=== PATIENT | male | born 1970 | race African-American/Black ===

== ENCOUNTER 2016-09-16 23:31 | Inpatient (IN) | payer MEDICARE, OTHER ==
--- NOTE | ~2016-09-16 | HP ---
Unit #: [id number] #: [id number] Patient: NELLY PIÑA [id number] [address] [place], [place] [address] [id number] I MR#: [id number] NAME: NELLY PIÑA. ROOM: 36436 Age: 46 Sex: M Admission Date: 09/17/2016 : 1970 Attending Physician: Leta Castellon M.D. Primary Care Physician: Lida Youngblood Family HISTORY AND PHYSICAL CHIEF COMPLAINT Symptomatic anemia with heme positive stool. HISTORY This 46-year-old male with schizophrenia, extensive previous abdominal surgery after drinking Drano, is admitted for symptomatic anemia. The patient states that he began to experience lightheadedness about two months ago. Did note melena around that same time. I am told he got kicked out of the [employer] yesterday, details are unknown. In any event, he presented to this emergency department last evening with stable vital signs, a hemoglobin of 6.5, hematocrit of 22.5 with microcytic indices. He has heme positive stool on exam. He was given Motrin along with a liter of saline pending further workup. Does complain of left chest discomfort but no abdominal discomfort currently. PAST MEDICAL HISTORY 1. Schizophrenia versus schizoaffective disorder. 2. History of polysubstance abuse in the past with alcohol and THC abuse but patient denies recent abuse. 3. Questionable peptic ulcer disease in the past. 4. Patient drank Drano ten years ago, required extensive surgery. 5. Low back surgery. ALLERGIES No known drug allergies. HOME MEDICATIONS None. FAMILY HISTORY Possibly positive for colon cancer. SOCIAL HISTORY The patient is homeless. Smokes about a half pack per day of tobacco. Does not drink alcohol or use illicit drugs currently. REVIEW OF SYSTEMS Difficult to obtain as patient is somewhat tangential. PHYSICAL EXAMINATION GENERAL APPEARANCE: 46-year-old thin male, currently in no acute distress. VITAL SIGNS: Temperature 98.1, pulse 98, respirations 16, blood pressure Unit #: [id number] #: [id number] Patient: NELLY PIÑA 112/72. O2 saturation 97% on room air. HEENT: Eyes PERRLA. Extraocular muscles are intact. Pharynx benign with poor dentition. NECK: Supple without adenopathy or thyromegaly. Scar over the left neck noted. CHEST: A few crackles at the bases. CARDIAC: Normal S1 and S2 without S3, S4 or murmur. ABDOMEN: Bowel sounds are present. Well-healed scars are noted. Nontender. No definite hepatosplenomegaly or masses. RECTAL: Examination per the ER - heme positive stool. EXTREMITIES: Without edema. Pedal pulses are markedly diminished. NEUROLOGIC EXAM: The patient is awake, alert. Might be a bit confused but it is difficult for me to tell as he is a bit tangential. His cranial nerves are intact. He has equal strength throughout. DIAGNOSTIC STUDIES LABORATORY: Admission labs - hematocrit is 22.5, hemoglobin is 6.5, white blood count is 12. MCV is 77. Negative cardiac markers. SMA-7 - glucose is 167. CARDIOVASCULAR: EKG - normal sinus rhythm, rate 100, normal appearing. ASSESSMENT 1. Symptomatic microcytic anemia. 2. Gastrointestinal bleed. 3. Status post extensive surgery after drinking Drano ten years ago. I wonder if patient underwent partial esophagectomy and gastric pull-through. 4. Schizophrenia. 5. Prior history of substance abuse. 6. Homeless. PLANS 1. Transfuse. 2. Proton pump inhibitor. 3. Anemia workup. 4. Serial H and H. 5. Consult GI. 6. Check LFTs, urinalysis, and urine tox screen. 7. Social work to see in the morning. 8. SCDs for DVT prophylaxis. Dictated by Leta Castellon M.D. AML/df TD: 09/17/2016 05:00 JOB #: [id number] Unit #: [id number] #: [id number] Patient: NELLY PIÑA HISTORY AND PHYSICAL X Leta Castellon MD HISTORY AND PHYSICAL
--- NOTE | ~2016-09-16 | CR71 ---
[facility] A Service of [facility] & [facility] RADIOLOGY TEXT RESULTS PATIENT: NELLY PIÑA LOCATION: [facility] 330- : 70 UNIT #: [id number] AGE: [address]: Papito Cole MD SEX: M ORDER DR: [id number] [place] [address] [place], [place] [address] [id number] I MR#: [id number] Acc #: [id number] NAME: NELLY PIÑA. : 1970 SEX: M STUDY DATE/TIME: 09/21/2016 022 UNIT: [address] ROOM: [facility] STUDY DESCRIPTION: CR Chest Single View Attending Physician: Papito Cole M.D. Ordering Physician: Leta Castellon M.D. Primary Care Physician: [facility] MEDICAL IMAGING REPORT This report is preliminary unless electronic signature is present EXAM Chest x-ray 09/21/2016 of 0221 hours INDICATIONS Wheezing and chest pain tonight. History of smoking and substance abuse. AP portable chest is compared with 07/30/2016 as well as chest CT from 05/21/2016. FINDINGS The heart is enlarged. 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 Please correlate with surgical history as none has been provided. No definite acute infiltrates are identified. There is no pneumothorax. Dictated by... Jose Armando Wong Jr., M.D. THIS IS AN ELECTRONICALLY VERIFIED REPORT Jose Armando Wong Jr., M.D. at 09/22/2016 6:40 AM SUSAN/yonathan TD: 09/21/2016 12:46 JOB #: [id number] MEDICAL IMAGING REPORT COPY
--- NOTE | ~2016-09-16 | DS ---
Unit #: [id number] #: [id number] Patient: NELLY PIÑA [id number] [place] [id number] [facility]. [place], [place] [address] [id number] Karen MR#: [id number] NAME: NELLY PIÑA. ROOM: 330 Age: 46 Sex: M Admission Date: 09/17/2016 : 1970 Discharge Date: Attending Physician: Papito Cole M.D. Primary Care Physician: [facility] Patients Family DISCHARGE SUMMARY ADDENDUM Since the dictated discharge summary, the patient has been exhibiting some psychiatric behaviors stating that he was the Son of God and will be able to bless and heal everybody. Therefore, Dr. Forbes was requested to come back and see the patient and had [facility]. Since then, patient also had, per the nurse, vomited twice. I believe he just had spit up. When I assessed him, he truly had no chest pain. His repeat hemoglobin and hematocrit are stable at this time at 8.6 and 26.7. he also told the assessing nurse at [facility] that he had been exposed to TB when they had originally assessed him. When questioned, he tells me that it was many, many years ago at [facility]. They did not treat him. At this time, he denied any symptoms of night sweats. He is afebrile at this time. I have reviewed his chest x-ray. I see no cavitary lesions suggestive of TB. The radiologist reading does not mention anything about cavitary lesions such as TB as well. I have sent labs off to assess for TB and this is pending as it needs to be sent out. Will follow up on this but highly doubt that this patient has TB. He does smoke and I believe he was smoking in the room. When assessed, I can smell a strong cigarette odor in there. I will be discharging patient on prednisone orally as his oxygen saturation on room air recorded is at 98%. He is already on antibiotics for the H. pylori with amoxicillin. I don't think he needs to be on any other antibiotics. An addendum to his medicine list would be: 1. Prednisone 40 mg orally for the next three days and 30 mg orally for the next three days, 20 mg orally for the next three days, 10 mg orally for the next three days. 2. Will also be discharging him with Combivent, to have four puffs inhaled four times daily. 3. Pulmicort two puffs inhaled twice daily. Dictated by.Sharon. Dwight James PA-C for Marie Landaverde/pham TD: 09/24/2016 11:42 JOB #: [id number] Unit #: [id number] #: [id number] Patient: NELLY PIÑA DISCHARGE SUMMARY X X DISCHARGE SUMMARY
--- NOTE | ~2016-09-16 | OR ---
Unit #: [id number] #: [id number] Patient: NELLY PIÑA [id number] [address] [place], [place] [address] [id number] Karen MR#: [id number] NAME: NELLY PIÑA ROOM: [facility] Date of Procedure: 09/17/2016 Admission Date: 09/17/2016 Surgeon: Rehan Benton M.D. : 1970 Attending Physician: Lauren Davenport M.D. Primary Care Physician: [facility] OPERATIVE REPORT PROCEDURE PERFORMED Esophagogastroduodenoscopy to descending duodenum. INDICATIONS FOR PROCEDURE The patient presented with hematemesis, anemia of acute on chronic blood loss, Hemoccult-positive stool, undergoing evaluation with upper endoscopy. MEDICATIONS Monitored anesthesia. POSTOPERATIVE FINDINGS 1. Severely deformed upper esophagus with stricture. I could not pass the regular EGD scope down this area and had to use a nasojejunal scope. 2. There was an anastomosis at about 20 cm, appears to be previous gastric pull-through surgery. 3. Gastric mucosa shows, there was significant deformities in the stomach and difficult to assess the anatomy at this time. However, there was a large cratered ulcer at the anastomosis, most likely the cause of chronic bleeding. PLAN 1. Aggressive PPI therapy. 2. Check for H pylori. 3. Iron infusion. DESCRIPTION OF PROCEDURE The patient was explained of the procedure, risks, and benefits along with risks and benefits of anesthesia. He was brought to the endoscopy room. Monitored anesthesia was given. We tried the scope with a regular scope, which could not be passed down the oropharyngeal area. At this point, I used a nasojejunal scope, which was passed down and exam was finished. However, we were not having any biopsy forceps with the scope. Gently, after completing the exam, I pulled the scope out. He tolerated it well. No major complications were seen. Dictated by... Marie Paula/asha Unit #: [id number] #: [id number] Patient: NELLY PIÑA TD: 09/18/2016 06:03 JOB #: [id number] OPERATIVE REPORT X Rehan Benton MD PROCEDURE OPERATIVE NOTE
--- NOTE | ~2016-09-16 | CO ---
Unit #: [id number] #: [id number] Patient: REG PIÑA [id number] [facility] [address] [facility]. [place], [place] [address] [id number] I MR#: [id number] NAME: REG PIÑA. ROOM: 330 Age: 46 Sex: M Admission Date: 09/17/2016 : 1970 Attending Physician: Lauren Davenport M.D. Primary Care Physician: Lida Youngblood Family Consultation Date: 09/17/2016 CONSULTATION REPORT REASON FOR CONSULTATION Psychosis, paranoia, history of schizophrenia, noncompliant with medication. HISTORY OF PRESENT ILLNESS Mr. Reg Piña is a 46-year-old male, seen on 09/17/2016 in room 330 at [facility]. The patient has a sitter. The [facility]. The patient reports that they have closed the case. The patient was last admitted to [facility] in 2012, carried diagnosis of schizophrenia, history of alcohol abuse, cannabis abuse. The patient was on Zyprexa. The patient was not very cooperative with the interview and refused to answer question. When last seen, the patient was on Zyprexa 20 mg for psychosis and Zoloft 100 mg daily for depression. PAST PSYCHIATRIC HISTORY Remarkable for history of schizophrenia, chronic, paranoid type; history of substance abuse. The patient denied any use recently. Urine drug screen was positive for amphetamines and barbiturates. MEDICAL HISTORY History of anemia, questionable peptic ulcer disease. The patient drank DRANO 10 years ago. Required extensive surgery, low back pain. Schizoaffective disorder. MEDICATION HISTORY The patient is on Protonix, haloperidol p.r.n. Please refer to MAR for detail. FAMILY HISTORY AND SOCIAL HISTORY The patient reports poor support system from family. Denied any history of abuse. History of substance abuse as mentioned above. REVIEW OF SYSTEMS Complete review of systems is remarkable for paranoia, disorganized behavior requiring one-to-one monitoring, anxiety. MENTAL STATUS EXAMINATION General appearance; the patient's hygiene and grooming were poor. Attention span and concentration, poor. Speech is slow. Orientation in place. Mood and affect, labile and irritable. Thought process, circumstantial. Thought content, guarded, paranoid, but denied any thoughts of harming self or others. Recent and remote memory, poor. Unit #: [id number] #: [id number] Patient: REG PIÑA Language, able to name object. Fund of knowledge, poor. Insight and judgment, impaired. DIAGNOSES Psychiatric: Schizophrenia, chronic, paranoid type, F20.0; rule out schizoaffective disorder, F25.9; history of alcohol abuse; marijuana abuse. Secondary diagnosis: Deferred. Medical diagnosis: Please refer to H and P. Stressors: Psychosocial stressor. ASSESSMENT/PLAN 1. Supportive psychotherapy and psychoeducation provided to the patient, but the patient was not receptive. 2. Advised to start the patient on Zyprexa 10 mg b.i.d. Also, advised to monitor the patient closely. Agree with one-to-one monitoring for safety of the patient. If needed, please feel free to call. We will continue to monitor. If needed, consider further adjustment of medication. Dictated by... Marie Vasquez/asha TD: 09/18/2016 18:05 JOB #: [id number] CONSULTATION REPORT X Gary Forbes MD X CONSULTATION REPORT
--- NOTE | ~2016-09-16 | CO ---
Unit #: [id number] #: [id number] Patient: REG PIÑA [id number] [facility] [address] [facility]. [place], [place] [address] [id number] I MR#: [id number] NAME: REG PIÑA ROOM: 330 Age: 46 Sex: M Admission Date: 09/17/2016 : 1970 Attending Physician: Papito Cole M.D. Primary Care Physician: Lida Youngblood Family Consultation Date: 09/24/2016 CONSULTATION REPORT REASON FOR CONSULTATION Followup. DISCUSSION Mr. Reg Piña is a 46-year-old male. Patient continues to have delusion, paranoia. Patient was seen in room 203, bed 1 on 09/24/16 at [facility]. Patient reported to staff being (1) of God. Patient also reported that he can cure illness, having some grandiose thinking, mood lability, paranoia. Reported hearing voices. Patient is still having the above-mentioned symptoms but making progress. REVIEW OF SYSTEMS A complete review of systems is unremarkable except as mentioned above. MENTAL STATUS EXAMINATION General appearance - Patient is dressed casually, sitting comfortably in bed. Attention span, concentration - Fair. Speech - Slow in rate but coherent. Oriented to time, place and person. Mood and affect - Labile. Thought process - Circumstantial. Thought content - The patient denied any thoughts of harming self or others but guarded, paranoid, delusional. Language - Able to name objects, repeat phrases. Fund of knowledge - Fair to slightly impaired. Insight and judgment - Fair to slightly impaired. DIAGNOSIS PSYCHIATRIC: Schizophrenia, chronic paranoia, F20.0 ASSESSMENT AND PLAN 1. Supportive psychotherapy and psychoeducation provided to the patient. 2. Educated about benefits and side effects of medication and course and prognosis of illness. 3. Advised, based on the current symptomatology and interview, that the patient will be benefited by going into inpatient psych. [facility] is medically cleared for psychiatric stabilization. The patient is still having delusions, psychosis, hypomanic symptoms. The patient will be benefited with injectable haloperidol or long-acting medication for psychosis. Please feel free to call with any questions, telephone number . Unit #: [id number] #: [id number] Patient: REG PIÑA Dictated by... Marie Vasquez/valentina TD: 09/25/2016 11:00 JOB #: [id number] CONSULTATION REPORT X Gary Forbes MD X CONSULTATION REPORT
--- NOTE | ~2016-09-16 | CO ---
Unit #: [id number] #: [id number] Patient: REG BEAULIEU [id number] [address] [place], [place] [address] [id number] I MR#: [id number] NAME: REG BEAULIEU. ROOM: 330 Age: 46 Sex: M Admission Date: 09/17/2016 : 1970 Attending Physician: Papito Cole M.D. Consultation Date: 09/20/2016 CONSULTATION REPORT DISCUSSION Reg Beaulieu is a 46-year-old male, seen on 09/20/2016. The patient lying comfortably in bed. Mood is sad and dysphoric, flat affect, withdrawn, and guarded. The patient denied any compliant with medication. The patient did not show any agitation. Tolerating medication fairly well. The patient still guarded and paranoid, but medication is helping. The patient's labs showed hemoglobin 9.1, RBC 3.48. The patient's sodium is 141, potassium 4.5, chloride 114. The patient's vital signs; 97.6, 78, 14, 111/66. REVIEW OF SYSTEMS Complete review of systems unremarkable. MENTAL STATUS EXAMINATION General appearance, the patient dressed casually. Attention span and concentration, fair. Mood and affect were sad and dysphoric, flat guarded, paranoid. Thought process, circumstantial. Thought content, guarded, paranoid, but denied any thoughts of harming self or others. Recent and remote memory, poor. Language, able to name object, fair. Fund of knowledge, fair to slightly impaired. Insight and judgment, fair to slightly impaired. DIAGNOSES Psychiatric: Schizophrenia, chronic, paranoid type, F20.0; history of schizoaffective disorder. ASSESSMENT AND PLAN Advised to continue with current medication and therapeutic protocol. We will monitor response to medication and make further adjustment of medication if needed. Please feel free to call if any questions, telephone #[phone]. Dictated by... Gary Forbes M.D. SHIMON/asha TD: 09/21/2016 13:14 JOB #: [id number] Unit #: [id number] #: [id number] Patient: REG BEAULIEU CONSULTATION REPORT X Gary Forbes MD CONSULTATION REPORT
--- NOTE | ~2016-09-16 | EKG ---
PATIENT: NELLY PIÑA UNIT #: [id number] Ventricular Rate: 96 BPM Atrial Rate: 96 BPM P-R Interval: 128 ms QRS Duration: 62 ms Q-T Interval: 348 ms QTC Calculation(Bezet): 439 ms P [place]: 48 degrees Calculated R [place]: 12 degrees Calculated T [place]: 59 degrees Diagnosis Line: Normal sinus rhythm with sinus arrhythmia Diagnosis Line: Normal ECG Diagnosis Line: When compared with ECG of 16-SEP-2016 23:42, Diagnosis Line: No significant change was found Diagnosis Line: Confirmed by SAMMY LUNA MD ([id number]) on Diagnosis Line: 09/22/2016 4:06:14 PM INTERPRETING MD: JEREMY ARREOLA
--- NOTE | ~2016-09-16 | DS ---
Unit #: [id number] #: [id number] Patient: NELLY PIÑA [id number] [address] [place], [place] [address] [id number] I MR#: [id number] NAME: NELLY PIÑA. ROOM: 330 Age: 46 Sex: M Admission Date: 09/17/2016 : 1970 Discharge Date: 09/21/2016 Attending Physician: Papito Cole M.D. Primary Care Physician: Lida Youngblood Family DISCHARGE SUMMARY The patient is homeless so he has no true primary care physician. DISCHARGE DIAGNOSES 1. Severe upper gastrointestinal bleed with positive Helicobacter pylori on serology from esophagogastroduodenoscopy. 2. Acute blood loss anemia secondary to #1, status post three units of packed red blood cells transfusion and iron transfusion. 3. Status post esophagectomy following drinking Drano many years ago. 4. Schizophrenia: Dr. Forbes has been consulted. Patient will be discharged with Zyprexa. 5. Polysubstance abuse: Patient was again positive for amphetamine. 6. Homelessness. CONSULTANTS 1. Dr. Forbes - Psychiatry. 2. Dr. Benton - Gastroenterology. PROCEDURES The patient had an EGD performed by Dr. Benton on September 17, 2016, where he was found to have severe deformed upper esophagus with stricture and was not able to pass a bronchoscope down but had to use a nasojejunal scope instead. There was also anastomoses at about 2 cm which appears to be from previous gastric pull-through surgery. There was also gastric mucosa with significant deformities in the stomach and difficult to assess anatomy but there was a large cratered ulcer at the anastomoses, most likely the cause of the chronic bleed. Dr. Benton had recommended aggressive PPI therapy as well as to check for H. pylori which was positive and iron transfusion. IMAGING No imaging was needed. LAB WORK At this time, the patient's last BMP was glucose of 85, BUN 11, creatinine 0.6, sodium 141, potassium 4.5, chloride 114, CO2 23, calcium 8.4, magnesium 1.9, total protein 5.0, albumin 2.7, total bilirubin 0.7, AST 19, ALT 14, alkaline phos. 94. TSH when checked was 2.23. CBC - WBC 7.9, RBC 3.48, hemoglobin 9.1, hematocrit 28.7, MCV is 82.7, MCH is 26.2, MCHC is 31.7, RDW of 20.1, platelets if 431, MPV is 7.3. HOSPITAL COURSE The patient is a 46-year-old male with a history of schizophrenia, extensive previous abdominal surgery after drinking Drano, was admitted to Unit #: [id number] #: [id number] Patient: NELLY PIÑA due to having symptoms of lightheadedness about two months prior to admission. He did note melena around that same time. He was kicked out of the [employer] the day prior to admission for unknown reason. In the event, he presented to the emergency department where he had stable vital signs but hemoglobin was 6.5, hematocrit was 22.5. He was heme positive of stool exam. He was given Motrin along with a liter of saline for further workup. Dr. Benton of gastroenterology was consulted to see the patient where he had performed an upper EGD with the result as stated above. The source of bleeding was found to be a large ulcerated ulcer. This was sent to lab and H. pylori was positive. Initiating triple therapy for H. pylori with amoxicillin, clarithromycin and Protonix, as patient has no known allergies, and will continue with aggressive Protonix usage thereon after. The patient did receive a total of three units of packed red blood cells as well as iron transfusion for the anemia. At this time, the patient is stable. precision printing worker is assisting with placement. DISCHARGE CONDITION Stable. DISCHARGE INSTRUCTIONS Please find a primary care physician. Will set him up to follow up with [facility] if he is willing to arrive for that appointment. Follow up with Dr. Martin by Dr. Martin's recommendation. DISCHARGE MEDICATIONS 1. Nicotine 21 mg transdermal patch [id number]. 2. Zyprexa 10 mg orally twice daily per Dr. Forbes's recommendation for the schizophrenia. 3. 1000 mg of vitamin B12 orally daily. 4. Multivitamin, one tablet orally daily. 5. Iron supplement 325 mg orally daily. 6. Treatment for H. pylori - amoxicillin 1 g orally twice daily for 14 days, clarithromycin 500 mg orally twice daily for 14 days, Protonix 40 mg aggressively twice daily for 30 days and then he can reduce to 40 mg orally daily. The patient's prognosis is poor if he continues to not care about his overall health. Patient does have a history of having substance abuse and on urine drug screen on arrival he was positive for amphetamine and positive for barbiturates but he does not have any home prescribed medicine. Dictated by... Dwight James PA-C for Marie Landaverde/pham TD: 09/23/2016 06:09 JOB #: [id number] Unit #: [id number] #: [id number] Patient: NELLY PIÑA DISCHARGE SUMMARY X X DISCHARGE SUMMARY
--- NOTE | ~2016-09-16 | DS ---
Unit #: [id number] #: [id number] Patient: NELLY PIÑA [id number] [address] [place], [place] [address] [id number] I MR#: [id number] NAME: NELLY PIÑA. ROOM: 330 Age: 46 Sex: M Admission Date: 09/17/2016 : 1970 Discharge Date: Attending Physician: Papito Cole M.D. Primary Care Physician: Lida Youngblood Family DISCHARGE SUMMARY ADDENDUM Since yesterday, the patient has had symptoms of chest pain. A repeat H and H reveals that hemoglobin was 7.8; fell from 9.3. Due to symptomatic anemia, discharge was held. The patient was given transfusion of 2 units of packed red blood cells. Dr. Benton has seen the patient again. He felt that the patient had no overt signs of bleeding. [place] that the patient is stable to be discharged today with hemoglobin of 8.8. Again, at this time the patient has no overt signs of bleeding and will be discharged to senior living today. The patient's prognosis is poor given his chronic problems remotely with esophagectomy following the Drano consumption and now with acute GI bleed, H. pylori. If the patient is not compliant in taking his triple therapy, then he will possibly continue to bleed from the ulcerated gastritis. As well, (1) given his lifestyle with substance abuse; the patient's urine drug screen was positive on admission for amphetamine. All discharge meds are the same. Discharge followups are the same. Followup with Dr. Benton; call his office. Outpatient followup with psych. Outpatient followup with [facility] has been arranged for 09/24/16 at 10 a.m. Dictated by... LUIS De Luna TD: 09/23/2016 12:23 JOB #: [id number] DISCHARGE SUMMARY X X DISCHARGE SUMMARY
--- NOTE | ~2016-09-16 | EKG ---
PATIENT: NELLY PIÑA UNIT #: [id number] Ventricular Rate: 93 BPM Atrial Rate: 93 BPM P-R Interval: 152 ms QRS Duration: 80 ms Q-T Interval: 384 ms QTC Calculation(Bezet): 477 ms P Newport: 52 degrees Calculated R Newport: 21 degrees Calculated T Newport: 57 degrees Diagnosis Line: Normal sinus rhythm Diagnosis Line: Normal ECG Diagnosis Line: No previous ECGs available Diagnosis Line: Confirmed by TOLU DUVAL MD ([id number]) on 09/17/2016 Diagnosis Line: 6:24:25 PM INTERPRETING MD: SIMIN ARREOLA
[~2016-09-16 23:31] MED LIST: ZYPREXA PO
[2016-09-16 23:43] LABS: POC - CKMB 2.2 ng/mL (0.0-7.9); POC - TROPONIN <0.05 ng/mL (<=0.05)
[2016-09-16 23:54] LABS: EOSINOPHIL% 0.2 % (0.0-7.0); HEMATOCRIT 22.5 % (38.0-50.0); LYMPHOCYTE# 1.1 X10e3 (1.0-3.5); LYMPHOCYTE% 9.2 % (17.0-45.0); MEAN CELL VOLUME 77.7 FL (83-96); MEAN CORPUSCULAR HEMOGLOBIN 22.6 PG (28-34); MEAN CORPUSCULAR HGB CONC 29.1 g/dL (30-36); MONOCYTE# 0.2 X10e3 (0-1.0); MONOCYTE% 1.9 % (3.0-12.0); NEUTROPHIL# 10.5 X10e3 (1.5-7.1); NEUTROPHIL% 88.7 % (40-75); PLATELET COUNT 646 X10e3 (140-420); RED BLOOD COUNT 2.89 X10e (3.90-5.60); RED CELL DISTRIBUTION WIDTH 19.1 % (11.0-15.5); WHITE BLOOD COUNT 11.9 X10e3 (4.0-10.5)
[2016-09-16 23:56] LABS: DIFF IND YES; HEMOGLOBIN 6.5 gm/dL (13.0-16.0)
[2016-09-17 00:18] LABS: BLOOD UREA NITROGEN 15 mg/dL (9-23); BUN/CREATININE RATIO 11.53; CALCIUM SERUM 8.8 mg/dL (8.4-10.2); CARBON DIOXIDE 24 mmol/L (22-31); CHLORIDE 106 mmol/L (100-111); CREATININE SERUM 1.3 mg/dL (0.6-1.4); GLOM FILT RATE Estimated ABOVE60 mL/min (>60); GLUCOSE FASTING 167 mg/dL (70-110); POTASSIUM 4.3 mmol/L (3.5-5.1); SODIUM 140 mmol/L (135-145)
[2016-09-17 00:29] LABS: MICROCYTOSIS MOD; PLATELET ESTIMATE INCREASED (NORMAL)
[2016-09-17] MEDS ORDERED: NO MEDICATIONS (01:06)
[2016-09-17 01:37] LABS: POC - CKMB 1.6 ng/mL (0.0-7.9); POC - TROPONIN <0.05 ng/mL (<=0.05)
[2016-09-17 03:06] LABS: FOLATE (FOLIC ACID) 17.7 ng/mL (>5.8)
[2016-09-17 04:21] LABS: URINE SOURCE CLEAN CATCH
[2016-09-17 04:26] LABS: URINE APPEARANCE CLOUDY; URINE BLOOD NEG (NEG); URINE COLOR DK YELLOW; URINE GLUCOSE NEG (NEG); URINE KETONE TRACE (NEG); URINE LEUKOCYTE ESTERASE TRACE (NEG); URINE NITRATE NEG (NEG); URINE PROTEIN 1+ (NEG)
[2016-09-17 04:28] LABS: CULTURE INDICATED? YES; URINE BACTERIA AUWI NEG (NEGATIVE); URINE SQUAMOUS EPITHELIAL CELL OCC /[HPF]; UWBCS1 AUWI 25-50 (0-5)
[2016-09-17 04:43] LABS: URINE BILIRUBIN NEG (NEG); URINE SPERM PRESENT
[2016-09-17 04:48] LABS: AMPHETAMINE POS (NEG); BARBITURATES POS (NEG); BENZODIAZEPINES NEG (NEG); COCAINE NEG (NEG); MARIJUANA NEG (NEG); OPIATES NEG (NEG); TRICYCLIC ANTIDEPRESSANTS NEG (NEG); U METHADONE NEG (NEG)
[2016-09-17 08:28] LABS: BASOPHIL% 0.4 % (0-2.5); EOSINOPHIL# 0.1 X10e3 (0-0.7); EOSINOPHIL% 1.5 % (0.0-7.0); HEMATOCRIT 24.6 % (38.0-50.0); HEMOGLOBIN 7.8 gm/dL (13.0-16.0); LYMPHOCYTE# 1.5 X10e3 (1.0-3.5); MEAN CELL VOLUME 80.5 FL (83-96); MEAN CORPUSCULAR HEMOGLOBIN 25.6 PG (28-34); MEAN CORPUSCULAR HGB CONC 31.8 g/dL (30-36); MEAN PLATELET VOLUME 7.8 FL (6.5-11.5); MONOCYTE# 0.7 X10e3 (0-1.0); MONOCYTE% 6.4 % (3.0-12.0); NEUTROPHIL# 7.8 X10e3 (1.5-7.1); NEUTROPHIL% 76.7 % (40-75); PLATELET COUNT 480 X10e3 (140-420); RED BLOOD COUNT 3.05 X10e (3.90-5.60); RED CELL DISTRIBUTION WIDTH 19.1 % (11.0-15.5); WHITE BLOOD COUNT 10.2 X10e3 (4.0-10.5)
[2016-09-17 08:29] LABS: DIFF IND NO
[2016-09-17 13:53] LABS: HEMATOCRIT 23.3 % (38.0-50.0); HEMOGLOBIN 7.5 gm/dL (13.0-16.0); MEAN CELL VOLUME 79.2 FL (83-96); MEAN CORPUSCULAR HEMOGLOBIN 25.4 PG (28-34); MEAN CORPUSCULAR HGB CONC 32.1 g/dL (30-36); MEAN PLATELET VOLUME 7.4 FL (6.5-11.5); RED BLOOD COUNT 2.94 X10e (3.90-5.60); RED CELL DISTRIBUTION WIDTH 18.9 % (11.0-15.5); WHITE BLOOD COUNT 6.7 X10e3 (4.0-10.5)
[2016-09-17 13:54] LABS: PROTHROMBIN TIME (PATIENT) 10.5 SECONDS (9.6-11.5)
[2016-09-17 14:15] LABS: ALBUMIN SERUM 3.1 g/dL (3.5-5.0); ALKALINE PHOSPHATASE 101 U/L (32-92); ALT (SGPT) 14 U/L (10-40); AST (SGOT) 18 U/L (10-42); BLOOD UREA NITROGEN 10 mg/dL (9-23); BUN/CREATININE RATIO 16.66; CALCIUM SERUM 8.1 mg/dL (8.4-10.2); CARBON DIOXIDE 23 mmol/L (22-31); CHLORIDE 113 mmol/L (100-111); CREATININE SERUM 0.6 mg/dL (0.6-1.4); GLOM FILT RATE Estimated ABOVE60 mL/min (>60); GLUCOSE FASTING 84 mg/dL (70-110); POTASSIUM 4.1 mmol/L (3.5-5.1); PROTEIN TOTAL SERUM 5.5 g/dL (6.0-8.3); SODIUM 138 mmol/L (135-145)
[2016-09-18 08:16] LABS: HEMATOCRIT 23.6 % (38.0-50.0); MEAN CELL VOLUME 81.9 FL (83-96); MEAN CORPUSCULAR HEMOGLOBIN 24.3 PG (28-34); MEAN CORPUSCULAR HGB CONC 29.7 g/dL (30-36); MEAN PLATELET VOLUME 8.2 FL (6.5-11.5); RED BLOOD COUNT 2.88 X10e (3.90-5.60); RED CELL DISTRIBUTION WIDTH 19.5 % (11.0-15.5); WHITE BLOOD COUNT 7.6 X10e3 (4.0-10.5)
[2016-09-18 08:50] LABS: ALBUMIN SERUM 2.7 g/dL (3.5-5.0); ALKALINE PHOSPHATASE 94 U/L (32-92); ALT (SGPT) 14 U/L (10-40); AST (SGOT) 19 U/L (10-42); BILIRUBIN,TOTAL 0.7 mg/dL (0.2-2.0); BLOOD UREA NITROGEN 6 mg/dL (9-23); BUN/CREATININE RATIO 8.57; CALCIUM SERUM 8.3 mg/dL (8.4-10.2); CARBON DIOXIDE 22 mmol/L (22-31); CHLORIDE 114 mmol/L (100-111); CREATININE SERUM 0.7 mg/dL (0.6-1.4); GLOM FILT RATE Estimated ABOVE60 mL/min (>60); GLUCOSE FASTING 75 mg/dL (70-110); MAGNESIUM 1.9 mg/dL (1.6-3.0); POTASSIUM 3.9 mmol/L (3.5-5.1); SODIUM 143 mmol/L (135-145)
[2016-09-18 14:55] LABS: HEMATOCRIT 22.2 % (38.0-50.0); HEMOGLOBIN 7.1 gm/dL (13.0-16.0)
[2016-09-19 11:22] LABS: HEMATOCRIT 30.2 % (38.0-50.0); MEAN CELL VOLUME 81.9 FL (83-96); MEAN CORPUSCULAR HEMOGLOBIN 25.8 PG (28-34); MEAN CORPUSCULAR HGB CONC 31.4 g/dL (30-36); RED BLOOD COUNT 3.69 X10e (3.90-5.60); RED CELL DISTRIBUTION WIDTH 19.3 % (11.0-15.5); WHITE BLOOD COUNT 10.9 X10e3 (4.0-10.5)
[2016-09-19 11:23] LABS: HEMOGLOBIN 9.5 gm/dL (13.0-16.0)
[2016-09-19 12:00] LABS: BLOOD UREA NITROGEN 7 mg/dL (9-23); BUN/CREATININE RATIO 8.75; CALCIUM SERUM 8.9 mg/dL (8.4-10.2); CARBON DIOXIDE 19 mmol/L (22-31); CHLORIDE 116 mmol/L (100-111); CREATININE SERUM 0.8 mg/dL (0.6-1.4); GLOM FILT RATE Estimated ABOVE60 mL/min (>60); GLUCOSE FASTING 220 mg/dL (70-110); POTASSIUM 4.2 mmol/L (3.5-5.1); SODIUM 142 mmol/L (135-145)
[2016-09-20 05:52] LABS: HEMATOCRIT 28.7 % (38.0-50.0); HEMOGLOBIN 9.1 gm/dL (13.0-16.0); MEAN CELL VOLUME 82.7 FL (83-96); MEAN CORPUSCULAR HEMOGLOBIN 26.2 PG (28-34); MEAN CORPUSCULAR HGB CONC 31.7 g/dL (30-36); MEAN PLATELET VOLUME 7.3 FL (6.5-11.5); RED BLOOD COUNT 3.48 X10e (3.90-5.60); RED CELL DISTRIBUTION WIDTH 20.1 % (11.0-15.5); WHITE BLOOD COUNT 7.9 X10e3 (4.0-10.5)
[2016-09-20 06:57] LABS: BLOOD UREA NITROGEN 11 mg/dL (9-23); BUN/CREATININE RATIO 18.33; CALCIUM SERUM 8.4 mg/dL (8.4-10.2); CARBON DIOXIDE 23 mmol/L (22-31); CHLORIDE 114 mmol/L (100-111); CREATININE SERUM 0.6 mg/dL (0.6-1.4); GLOM FILT RATE Estimated ABOVE60 mL/min (>60); GLUCOSE FASTING 85 mg/dL (70-110); POTASSIUM 4.5 mmol/L (3.5-5.1); SODIUM 141 mmol/L (135-145)
[2016-09-21 03:23] LABS: CK TOTAL 29 IU/L (36-174)
[2016-09-21 09:19] LABS: CK TOTAL 21 IU/L (36-174)
[2016-09-21 11:14] LABS: BLOOD UREA NITROGEN 33 mg/dL (9-23); BUN/CREATININE RATIO 47.14; CALCIUM SERUM 7.9 mg/dL (8.4-10.2); CARBON DIOXIDE 23 mmol/L (22-31); CHLORIDE 111 mmol/L (100-111); CREATININE SERUM 0.7 mg/dL (0.6-1.4); GLOM FILT RATE Estimated ABOVE60 mL/min (>60); GLUCOSE FASTING 108 mg/dL (70-110); MAGNESIUM 1.6 mg/dL (1.6-3.0); POTASSIUM 5.2 mmol/L (3.5-5.1); SODIUM 138 mmol/L (135-145)
[2016-09-21 12:31] LABS: HEMATOCRIT 24.2 % (38.0-50.0); MEAN CELL VOLUME 84.4 FL (83-96); MEAN CORPUSCULAR HEMOGLOBIN 25.5 PG (28-34); MEAN CORPUSCULAR HGB CONC 30.2 g/dL (30-36); RED BLOOD COUNT 2.86 X10e (3.90-5.60); RED CELL DISTRIBUTION WIDTH 21.1 % (11.0-15.5)
[2016-09-21 12:44] LABS: WHITE BLOOD COUNT 13.6 X10e3 (4.0-10.5)
[2016-09-21 12:47] LABS: HEMOGLOBIN 7.3 gm/dL (13.0-16.0)
[2016-09-22 06:47] LABS: HEMOGLOBIN 8.8 gm/dL (13.0-16.0)
[2016-09-22 07:10] LABS: MAGNESIUM 1.5 mg/dL (1.6-3.0)
[2016-09-22 07:13] LABS: POTASSIUM 3.7 mmol/L (3.5-5.1)
[2016-09-23 15:16] LABS: HEMATOCRIT 29.2 % (38.0-50.0); HEMOGLOBIN 9.3 gm/dL (13.0-16.0)
[2016-09-24 05:46] LABS: HEMATOCRIT 26.7 % (38.0-50.0); HEMOGLOBIN 8.6 gm/dL (13.0-16.0)
[2016-09-24 06:15] LABS: MAGNESIUM 1.7 mg/dL (1.6-3.0); POTASSIUM 4.6 mmol/L (3.5-5.1)
[2016-09-24 14:36] LABS: HEMOGLOBIN 8.9 gm/dL (13.0-16.0)
== END 2016-09-24 15:41 | DRG 378 ==
LOC: CED 23:31 → CEDOF 09-17 01:45 → C3A PCU 09-17 11:54
PROVIDERS: Emergency Medicine; Family Medicine; Internal Medicine; Physician Assistant Medical
PROC: 30233N1 Transfusion of Nonautologous Red Blood Cells into Peripheral Vein, Percutaneous Approach (ICD-10-PCS; 2016-09-17)
PROC: 0DB68ZX Excision of Stomach, Via Natural or Artificial Opening Endoscopic, Diagnostic (ICD-10-PCS; principal; 2016-09-17 10:07)
PROC: 05HB33Z Insertion of Infusion Device into Right Basilic Vein, Percutaneous Approach (ICD-10-PCS; 2016-09-21)
PROC: B54MZZA Ultrasonography of Right Upper Extremity Veins, Guidance (ICD-10-PCS; 2016-09-21)
DX: K25.4 Chronic or unspecified gastric ulcer with hemorrhage (principal); D62 Acute posthemorrhagic anemia; J44.1 Chronic obstructive pulmonary disease with (acute) exacerbation; F20.0 Paranoid schizophrenia; K22.2 Esophageal obstruction; K29.71 Gastritis, unspecified, with bleeding; B96.81 Helicobacter pylori [H. pylori] as the cause of diseases classified elsewhere; Z59.0 Homelessness; F15.10 Other stimulant abuse, uncomplicated; R07.9 Chest pain, unspecified; F17.210 Nicotine dependence, cigarettes, uncomplicated; K31.89 Other diseases of stomach and duodenum; F12.10 Cannabis abuse, uncomplicated; Z63.8 Other specified problems related to primary support group; Z91.14 Patient's other noncompliance with medication regimen; Z80.0 Family history of malignant neoplasm of digestive organs
CPT/HCPCS: 36415; 71010; 80048; 80053; 80307; 81003; 82140; 82550; 82553; 82607; 82728; 82746; 83540; 83550; 83735; 84132; 84443; 84484; 85014; 85018; 85025; 85027; 85044; 85610; 85730; 86677; 86850; 86900; 86901; 86923; 87086; 87116; 87206; 93005; 94640; 94760; 96360; 97116; 97163; 99291; C9113; G8978-GP; G8979-GP; J1630; J1885; J2060; J2250; J2270; J2405; J2916; J2920; J3420; J3475; P9016

== ENCOUNTER 2016-09-24 16:23 | Inpatient (IN) | payer MEDICARE, OTHER ==
--- NOTE | ~2016-09-24 | PN ---
Unit #: [id number] #: [id number] Patient: NELLY PIÑA [id number] [facility] [address] [place] [address] [id number] I MR#: [id number] NAME: NELLY PIÑA ROOM: P121 Age: 46 Sex: M Admission Date: 09/24/2016 : 1970 Attending Physician: Cayden Gonzalez M.D. Admitting Physician: Cayden Gonzalez M.D. Primary Care Physician: Primary Care Physician Debbie GRIFFIN PROGRESS NOTES DATE 09/28/2016 DISCUSSION The patient continues to be complain of difficulty with ambulation and is today noted to be (1) heavily. We will give a one tome dosage of Phenergan. I will also as the patient's web content & social media manager top see him regarding possible referral for physical rehabilitation as he is clearly unable to function out outside out the hospital at this point given his inability to ambulate. Dictated by... Cayden Gonzalez M.D. CB/gladys TD: 09/29/2016 01:25 JOB #: [id number] ELIAS ROMERO NOTES X Cayden Gonzalez MD PROGRESS NOTE
--- NOTE | ~2016-09-24 | PN ---
Unit #: [id number] #: [id number] Patient: NELLY PIÑA [id number] [facility] [address] [place] [address] [id number] MR#: [id number] NAME: NELLY PIÑA ROOM: P121 Age: 46 Sex: M Admission Date: 09/24/2016 : 1970 Attending Physician: Cayden Gonzalez M.D. Admitting Physician: Cayden Gonzalez M.D. Primary Care Physician: Primary Care Physician Debbie GRIFFIN PROGRESS NOTES DATE 10/02/2016 DISCUSSION The patient remains abed with little participation in the therapeutic milieu. He remains essentially unable to ambulate without assistance. Unfortunately we have been unsuccessful in finding any sort of residential treatment for the patient given his insurance status, and the refusal to accept him with his [employer]. I will ask that the staff begin walking the patient (1) ___ 2 hours in the [place]urston with a gait belt in hopes of making some progress towards discharge. Dictated by... Cayden Gonzalez M.D. CB/parker TD: 10/03/2016 09:26 JOB #: [id number] ELIAS PROGRESS NOTES X Cayden Gonzalez MD PROGRESS NOTE
--- NOTE | ~2016-09-24 | PN ---
Unit #: [id number] #: [id number] Patient: NELLY PIÑA [id number] [facility] [address] [place] [address] [id number] I MR#: [id number] NAME: NELLY PIÑA ROOM: P121 Age: 46 Sex: M Admission Date: 09/24/2016 : 1970 Attending Physician: Cayden Gonzalez M.D. Admitting Physician: Cayden Gonzalez M.D. Primary Care Physician: Primary Care Physician Debbie GRIFFIN PROGRESS NOTES DATE 09/30/2016 DISCUSSION The patient is abed today. He again pushed for discharge yesterday afternoon, but we remain concerned about his difficulty with ambulation. I have, however, told the patient to expect a.m. discharge, and he is agreeable therewith. Dictated by... Cayden Gonzalez M.D. CB/parker TD: 09/30/2016 14:15 JOB #: [id number] ELIAS PROGRESS NOTES X Cayden Gonzalez MD PROGRESS NOTE
--- NOTE | ~2016-09-24 | HP ---
Unit #: [id number] #: [id number] Patient: REG PIÑA [id number] [facility] [address] [place] [address] [id number] MR#: [id number] NAME: REG PIÑA ROOM: P121 Age: 46 Sex: M Admission Date: 09/24/2016 : 1970 Attending Physician: Cayden Gonzalez M.D. Admitting Physician: Cayden Gonzalez M.D. Primary Care Physician: Primary Care Physician No HISTORY AND PHYSICAL HISTORY OF PRESENT ILLNESS Reg is a 46 year old admitted to [address] [place] [address] because of his schizophrenia. He was recently discharged from [facility] after a brief admission for symptomatic anemia with heme positive stool. The patient was seen and H and P from [facility] dated 09/17 and discharge summary dated 09/24 were reviewed. These are current. No changes. Please see H and P and discharge summary for complete history and physical exam. Dictated by... Jessica Gar P.A.-C. for Marie Lewis/sam TD: 09/25/2016 21:18 JOB #: [id number] HISTORY AND PHYSICAL X Jessica Gar HISTORY AND PHYSICAL
--- NOTE | ~2016-09-24 | A ---
[facility] Nutrition Therapy DATE: 09/25/16 Patient: NELLY PIÑA Physician: CHANCE Address: HOMELESS NO PERMANENT ADDRESS Room/Bed: [facility] [facility], Zip: [place] [address] Admit Date: 09/24/16 Date of : [birth year] Height: 5 6 Weight: 129 58.52910 NUTRITIONAL ASSESSMENT: REASON: 1 point malntrition risk score for unintentional weight loss Admitting Dx: 46 y/o male admitted with depression PMH: Esophagectomy after ingesting Drano (suicide attempt 10 years ago), schizophrenia, GI bleed, anemia, 1/2 ppd smoker, PSA, homelessness Anthropometrics: Ht: 66", Wt: 130 lbs, BMI: 20 (normal) Labs: Reviewed; nothing significant Meds: Mag-al, Milk of Mg, Vit B12, Prednisone, psych meds noted Assessment: Chart reviewed, events noted. See admitting dx and especially PMH as stated above. Patient is homeless, on disability. He had a recent discharge from [facility] after being admitted for an upper GIB, EGD on 09/17 showed severely deformed upper esophagus with stricture, 20 cm anastomosis, gastric ulcer. Patient had esophagectomy approx. 10 years ago after a suicide attempt by drinking Drano. He is on a mehcanial chopped diet with no caffeine, which is the diet he was on at [facility]. Unsure if SPEECH AND LANGUAGE SPECIALIST evaluated the patient or if his esophageal stricture was dilated. Patient scored 1 point on the malnutrition risk score for unintentional weight loss, conflicting weights in [facility] during September range from 130-160 lbs, but patient appears 130 lbs. Per his needs assessment he reported a 10 lb weight loss in months and good appetite, but told RD he has lost more like 20-30 lbs in the past 6-12 months due to depression and being homeless. He has a soft, raspy voice due to his esophageal issues. RD explained his current diet to him, he says he has no difficulties chewing but does have some issues swallowing, has to take multiple drinks throughout meals and manually "massage" food down his throat. He is interested in trying Ensure TID, RD explained chente and that I would order for him. Patient is pleasant and appreciative. See RD recs below, will follow treatment course. Dx: Unintentional weight loss r/t depression, homelessness, dysphagia AEB need for mechanically altered diet, 1 point malnutrition risk score. Intervention: Ensure TID Monitoring, Evaluation and Goals: 1. Adequate oral intake > 75% of meals with minimal c/o C/S difficulties. 2. Maintain current weight status, prevent further unintentional loss. Monitor: Per protocol, criteria to determine if above goals met [facility] Nutrition Therapy DATE: 09/25/16 Patient: NELLY Arellano AYANA Physician: CHANCE Address: HOMELESS NO PERMANENT ADDRESS Room/Bed: P203-[address] [facility], Zip: [place] [address] Admit Date: 09/24/16 Date of : [birth year] Height: 5 6 Weight: 129 58.38824 Recommendations: 1. Continue mechanical chopped diet, no caffeine per MD. Encourage adequate oral intake and provide snacks prn. The patient requires multiple swallows during meals, so he may need extra fluids. If he has any s/s of further difficulties chewing/swallowing or aspiration suggest medical consult and SPEECH AND LANGUAGE SPECIALIST eval. 2. Consider adding daily PPI, he need aggressive protonix therapy due to recent EGD findings. Continue vitamin B12. 3. Please order vanilla or chocolate Ensure TID per patient request/RD suggestion. Wrote in chart for MD to order, will notify [facility] staff to send. 4. Please weigh q 3 days for monitoring purposes, as the patient has had recent weight loss and is at risk for malnutrition. RD will follow treatment course Moderate nutrition risk Respectfully, Susu Vogel, AMY, HEATHER [facility] cc: client file
--- NOTE | ~2016-09-24 | PN ---
Unit #: [id number] #: [id number] Patient: NELLY PIÑA [id number] [facility] [address] [place] [address] [id number] MR#: [id number] NAME: NELLY PIÑA ROOM: P121 Age: 46 Sex: M Admission Date: 09/24/2016 : 1970 Attending Physician: Cayden Gonzalez M.D. Admitting Physician: Cayden Gonzalez M.D. Primary Care Physician: Primary Care Physician Debbie GRIFFIN PROGRESS NOTES DATE 09/29/2016 DISCUSSION The patient remains seclusive to room, abed and is still suffering from some nausea and vomiting. We continue to await word regarding a possible rehabilitation referral. Dictated by... Cayden Gonzalez M.D. CB/sam TD: 09/29/2016 16:53 JOB #: [id number] ELIAS PROGRESS NOTES X Cayden Gonzalez MD X PROGRESS NOTE
--- NOTE | ~2016-09-24 | PA ---
Unit #: [id number] #: [id number] Patient: NELLY PIÑA [id number] [place] [address] [id number] MR#: [id number] NAME: NELLY PIÑA ROOM: P121 Age: 46 Sex: M Admission Date: 09/24/2016 : 1970 Date of Assessment: 09/25/2016 Attending Physician: Cayden Gonzalez M.D. Admitting Physician: Cayden Gonzalez M.D. Primary Care Physician: Primary Care Physician No PSYCHIATRIC ASSESSMENT IDENTIFYING INFORMATION The patient is a 46-year-old male admitted in transfer from [facility] following a period of medication noncompliance. INFORMANT(S) Patient. RELIABILITY Fair. CHIEF COMPLAINT None given. HISTORY OF PRESENT ILLNESS The patient is a 46-year-old male who carries a diagnosis of chronic paranoid schizophrenia. He was recently admitted to [facility] with pneumonia. He reports that he has been off his medications for some time and while at that facility had expressed some delusional thinking including the belief that at the age of 60, he would sprout wings and fly to [facility]. When seen today, the patient is noted to be somewhat odd in his interactions with peers and staff. He was last diagnosed by this physician with schizoaffective disorder in 2012. The patient is today pleasant and cooperative. He denies current suicidal or homicidal ideation and is not at this point endorsing any psychotic thinking. PAST PSYCHIATRIC HISTORY The patient was last hospitalized under the care of this physician in 2012. He carries a diagnosis of schizoaffective disorder and does have a history of alcohol and cannabis abuse. FAMILY HISTORY Noncontributory. SOCIAL HISTORY Patient reports occasional use of alcohol and is a smoker. MEDICAL HISTORY Significant for his recent bout of pneumonia. MEDICATION HISTORY 1. Haldol. Unit #: [id number] #: [id number] Patient: NELLY PIÑA 2. Ativan. 3. Biaxin. 4. Amoxicillin. 5. Zydis. 6. Vitamin D. 7. Prednisone. 8. Symbicort. 9. Combivent. ALLERGIES None. MENTAL STATUS EXAM At this time, reveals the patient to be a thin, disheveled male appearing his stated age. He is dressed in hospital garb and is sitting in a wheelchair. He is awake, alert, oriented in all spheres. His mood is calm and his affect blunted. Speech is generally relevant and coherent. There are no gross deficits in memory or cognition noted. Intelligence is judged to be in the average range based on fund of knowledge. The patient is generally cooperative throughout the interview. He is currently denying suicidal or homicidal ideation. He does report some zoroastrian and possible grandiose delusional thinking. His judgement and insight appear to be significantly impaired. ASSETS AND LIABILITIES Patient's assets to be assessed. Liabilities, lack of resources. ADMITTING DIAGNOSES 1. Schizoaffective disorder. 2. History of peptic ulcer disease. 3. Pneumonia. PSYCHIATRIC PLAN/TREATMENT GOALS The patient will continue previously prescribed medications and will continue his downward titration of prednisone. He will be transferred to the [address] [place] [address] unit once a bed is available there. We will call [facility] regarding proper doses of his prescribed medications. ESTIMATED LENGTH OF STAY Five to seven days. Dictated by... Cayden Gonzalez M.D. FELICITY/sam TD: 09/25/2016 15:43 JOB #: [id number] Unit #: [id number] #: [id number] Patient: NELLY PIÑA PSYCHIATRIC ASSESSMENT X Cayden Gonzalez MD PSYCHIATRIC ASSESSMENT
--- NOTE | ~2016-09-24 | PN ---
Unit #: [id number] #: [id number] Patient: NELLY PIÑA [id number] [facility] [address] [place] [address] [id number] MR#: [id number] NAME: NELLY PIÑA ROOM: P121 Age: 46 Sex: M Admission Date: 09/24/2016 : 1970 Attending Physician: Cayden Gonzalez M.D. Admitting Physician: Cayden Gonzalez M.D. Primary Care Physician: Primary Care Physician Debbie GRIFFIN PROGRESS NOTES DATE 09/26/2016 DISCUSSION The patient is abed today. He arouses briefly but states that he does not wish to speak at this time. Staff has had to put the patient on one-to-one precautions after several falls. Dictated by... Cayden Gonzalez M.D. CB/sam TD: 09/26/2016 16:34 JOB #: [id number] ELIAS ROMERO NOTES X Cayden Gonzalez MD PROGRESS NOTE
--- NOTE | ~2016-09-24 | PN ---
Unit #: [id number] #: [id number] Patient: NELLY PIÑA [id number] [facility] [address] [place] [address] [id number] I MR#: [id number] NAME: NELLY PIÑA ROOM: P121 Age: 46 Sex: M Admission Date: 09/24/2016 : 1970 Attending Physician: Cayden Gonzalez M.D. Admitting Physician: Cayden Gonzalez M.D. Primary Care Physician: Primary Care Physician Debbie GRIFFIN PROGRESS NOTES DATE 09/27/2016 DISCUSSION The patient remains wheelchair bound and is complaining of ongoing head and muscle pain. We continue current pharmacotherapy. Dictated by... Cayden Gonzalez M.D. CB/gladys TD: 09/27/2016 21:02 JOB #: [id number] ELIAS ROMERO NOTES X Cayden Gonzalez MD PROGRESS NOTE
--- NOTE | ~2016-09-24 | DS ---
Unit #: [id number] #: [id number] Patient: NELLY PIÑA [id number] [facility] [address] [place] [address] [id number] MR#: [id number] NAME: NELLY PIÑA. ROOM: P121 Age: 46 Sex: M Admission Date: 09/24/2016 : 1970 Discharge Date: 10/03/2016 Attending Physician: Cayden Gonzalez M.D. Primary Care Physician: Primary Care Physician No DISCHARGE SUMMARY REASON FOR ADMISSION The patient is a 46-year-old single male, admitted to the [address] [place] [address] unit in transfer from [facility] after he had been hospitalized at that facility with pneumonia. HOSPITAL COURSE The patient was admitted to the [address] [place] [address] unit and placed on suicide precautions. All home medications were continued including the Zydis, vitamin B12, Proventil, (1)* , Trimox, Deltasone, Symbicort, Motrin, Biaxin, and Zofran. The patient's stay in the hospital was characterized by his remaining bed throughout much of the stay in the hospital claiming to be unable to walk because of his physical weakness. Attempts were made to place the patient in a rehabilitation facility, however, these efforts were unsuccessful. The patient on several occasions demanded to leave the hospital, but because of his physical debility it was not felt that it was safe for him to leave the hospital. Finally on 10/02/2016, after it was learned that the patient would not qualify for a medical bed at [facility] nor for any rehabilitation placement. Decision was made for staff to ambulate the patient using a gait belt in the thurston every 2 hours in hopes of helping him regain his strength. The patient was steadfastly refused to comply with this, however and on 10/03/2016, he was gently confronted regarding this. The patient did ambulate briefly in front of the staff and this physician in his room, and the gait he displayed looked to be more functional than actually related to weakness or any neurologic issues. Whatever the case the patient demanded discharge at that point and it was felt that the patient clearly meets maximum benefit from hospitalization. He was not cooperating with care. This physician did express the patient's concerns about his seeming physical frailty as well as his homeless status. The patient however was insistent that he would be discharged and was not felt to meet criteria for involuntary hospitalization. He was ordered discharge on an against medical advice basis. FINAL DIAGNOSES Chronic history of schizophrenia, history of pneumonia. DISPOSITION ON DISCHARGE The patient is discharged against medical advice after discussion as described above. The patient will not be given prescriptions for psychotropic medications, but will be provided with prescriptions for amoxicillin, Deltasone, and Biaxin. DISCHARGE INSTRUCTIONS No dietary or physical restrictions were placed upon the patient at the Unit #: [id number] #: [id number] Patient: NELLY PIÑA time of discharge. PROGNOSIS His prognosis is considered guarded. *Faxed to Dr. Gonzalez's office on 10/05/16 for medication verification. cd Dictated by... Cayden Gonzalez M.D. CB/asha TD: 10/03/2016 23:05 JOB #: [id number] DISCHARGE SUMMARY X Cayden Gonzalez MD X DISCHARGE SUMMARY
--- NOTE | ~2016-09-24 | PN ---
Unit #: [id number] #: [id number] Patient: NELLY PIÑA [id number] [facility] [address] [place] [address] [id number] MR#: [id number] NAME: NELLY PIÑA ROOM: P121 Age: 46 Sex: M Admission Date: 09/24/2016 : 1970 Attending Physician: Cayden Gonzalez M.D. Admitting Physician: Cayden Gonzalez M.D. Primary Care Physician: Primary Care Physician Debbie GRIFFIN PROGRESS NOTES DATE 10/01/2016 DISCUSSION The patient's mood remains fairly euthymic, and he is denying any psychotic symptoms. His nausea seems to have cleared. Yet he seems he is clearly unable to ambulate. We await word regarding possible rehabilitation treatment as we cannot place an individual who is unable to ambulate out of the hospital and on the street. Dictated by... Cayden Gonzalez M.D. CB/bzg TD: 10/01/2016 14:52 JOB #: [id number] ELIAS PROGRESS NOTES X Cayden Gonzalez MD PROGRESS NOTE
--- NOTE | ~2016-09-24 | FU ---
[facility] Nutrition Therapy DATE: 10/02/16 Patient: NELLY PIÑA Physician: CHANCE Address: HOMELESS NO PERMANENT ADDRESS Room/Bed: [address], Zip: [place] [address] Admit Date: 09/24/16 Date of : [birth year] Height: 5 6 Weight: 129 58.98668 NUTRITION MONITORING/FOLLOW-UP: Reason: NUTRITION F/U FOR UNINTENTIONAL WEIGHT LOSS PATIENT ADMITTED FOR DEPRESSION Anthropometrics: 5'6", WT: 130#, BMI: 20 (NO NEW WEIGHT) Labs: NO NEW LABS Meds: ATIVAN, HALDOL, ZYPREXA, PREDNISONE, VIT B12 Assessment: PATIENT CONTINUES WITH FAIR-GOOD PO INTAKES. PATIENT HAS A REFERRAL TO A REHABILITATION FACILITY AND IS AWAITING PLACEMENT D/T INABILITY TO AMBULATE AND THEREFORE UNABLE TO BE D/C'D FROM FACILITY. THERE ARE NO NEW WEIGHTS OR LABS. CURRENT PSYCH MEDS MAY CAUSE AN INCREASE IN WEIGHT AND APPETITE. PATIENT CONTINUES ON A MECHANICAL CHOP DIET WITH NO CAFFEINE, SNACKS BID, AND ENSURE TID. PATIENT HAS NOT HAD ANY FURTHER C/O SWALLOWING DIFFICULTIES ATT. Dx: UNINTENTIONAL WEIGHT LOSS R/T DEPRESSION, HOMELESSNESS, DYSPHAGIA AEB NEED FOR MECHANICALLY ALTERED DIET, 1 POINT MALNUTRITION RISK SCORE - IMPROVING Intervention: ENSURE TID, SNACKS BID Monitoring, Evaluation and Goals: 1. ADEQUATE ORAL INTAKE >75% OF MEALS WITH MINIMAL C/O CHEWING/SWALLOWING DIFFICULTIES 2. MAINTAIN CURRENT WEIGHT STATUS, PREVENT FURTHER WEIGHT LOSS MONITOR: WEIGHTS, LABS, PO/FLUID INTAKES Recommendations: 1. CONTINUE MECHANICAL CHOPPED DIET WITH NO CAFFEINE TOLERATED. CONTINUE ENSURE TID AND SNACKS BID. IF PATIENT HAS ANY FURTHER C/O SWALLOWING DIFFICULTIES PLEASE CONSULT OCCUPATIONAL HEALTH SPECIALIST FOR FURTHER ASSESSMENT 2. ENCOURAGE ADEQUATE PO AND FLUID INTAKES. PATIENT MAY REQUIRE EXTRA FLUIDS AT MEALS TO ASSIST IN SWALLOWING 3. OBTAIN NEW WEIGHT TO ASSESS CURRENT WEIGHT STATUS. RD TO F/U PER PROTOCOL AND PRN R/T PATIENT MILD/MODERATELY COMPROMISED [facility] Nutrition Therapy DATE: 10/02/16 Patient: NELLY PIÑA Physician: CHANCE Address: HOMELESS NO PERMANENT ADDRESS Room/Bed: [address], Zip: [place] [address] Admit Date: 09/24/16 Date of : [birth year] Height: 5 6 Weight: 129 58.80932 Respectfully, PREET JHAVERI RD, LD [facility] cc: client file
[~2016-09-24 16:23] MED LIST changes: +NO MEDICATIONS
[2016-09-25 09:51] LABS: BASOPHIL# 0.1 X10e3 (0-0.3); BASOPHIL% 0.3 % (0-2.5); EOSINOPHIL% 0.1 % (0.0-7.0); HEMATOCRIT 34.4 % (38.0-50.0); HEMOGLOBIN 10.6 gm/dL (13.0-16.0); LYMPHOCYTE# 1.4 X10e3 (1.0-3.5); LYMPHOCYTE% 6.5 % (17.0-45.0); MEAN CELL VOLUME 87.6 FL (83-96); MEAN CORPUSCULAR HEMOGLOBIN 27.1 PG (28-34); MEAN PLATELET VOLUME 8.5 FL (6.5-11.5); MONOCYTE# 0.8 X10e3 (0-1.0); MONOCYTE% 3.7 % (3.0-12.0); NEUTROPHIL# 18.6 X10e3 (1.5-7.1); NEUTROPHIL% 89.4 % (40-75); PLATELET COUNT 434 X10e3 (140-420); RED BLOOD COUNT 3.92 X10e (3.90-5.60); RED CELL DISTRIBUTION WIDTH 19.9 % (11.0-15.5); WHITE BLOOD COUNT 20.8 X10e3 (4.0-10.5)
[2016-09-25 09:58] LABS: DIFF IND YES
[2016-09-25 10:01] LABS: THYROID STIMULATING HORMONE 1.19 uIU/ml (0.34-5.60)
[2016-09-25 10:09] LABS: ALBUMIN SERUM 2.7 g/dL (3.5-5.0); ALKALINE PHOSPHATASE 103 U/L (32-92); ALT (SGPT) 30 U/L (10-40); AST (SGOT) 26 U/L (10-42); BILIRUBIN,TOTAL 0.3 mg/dL (0.2-2.0); BLOOD UREA NITROGEN 11 mg/dL (9-23); BUN/CREATININE RATIO 13.75; CALCIUM SERUM 9.1 mg/dL (8.4-10.2); CARBON DIOXIDE 23 mmol/L (22-31); CHLORIDE 105 mmol/L (100-111); CREATININE SERUM 0.8 mg/dL (0.6-1.4); GLOM FILT RATE Estimated ABOVE60 mL/min (>60); GLUCOSE FASTING 229 mg/dL (70-110); POTASSIUM 5.1 mmol/L (3.5-5.1); PROTEIN TOTAL SERUM 5.8 g/dL (6.0-8.3); SODIUM 138 mmol/L (135-145)
[2016-09-25 10:13] LABS: FREE THYROXIN (T4) 0.63 ng/dL (0.58-1.64)
[2016-09-25 10:20] LABS: ANISOCYTOSIS MOD; PLATELET ESTIMATE INCREASED (NORMAL)
[2016-09-25 10:25] LABS: POIKILOCYTOSIS MOD
[2016-09-25 10:26] LABS: BURR CELLS PRESENT; HYPOCHROMIA SL; POLYCHROMASIA SL; SCHISTOCYTES PRESENT
[2016-09-25 12:42] LABS: URINE APPEARANCE CLEAR; URINE BILIRUBIN NEG (NEG); URINE BLOOD NEG (NEG); URINE COLOR YELLOW; URINE GLUCOSE >1000 MG/DL (NEG); URINE KETONE TRACE (NEG); URINE LEUKOCYTE ESTERASE NEG (NEG); URINE NITRATE NEG (NEG); URINE PROTEIN NEG (NEG); URINE SPECIFIC GRAVITY 1.028 (1.003-1.035)
[2016-09-25 13:48] LABS: AMPHETAMINE NEG (NEG); BARBITURATES NEG (NEG); BENZODIAZEPINES POS (NEG); COCAINE NEG (NEG); MARIJUANA NEG (NEG); OPIATES POS (NEG); TRICYCLIC ANTIDEPRESSANTS NEG (NEG); U METHADONE NEG (NEG)
== END 2016-10-03 16:30 | disposition home or self-care (01) | DRG 885 ==
LOC: P2S 16:23 → P1S 09-25 13:46 → POF 09-28 14:18 → P1S 09-28 14:25
PROVIDERS: Specialist
DX: F20.9 Schizophrenia, unspecified (principal); J18.9 Pneumonia, unspecified organism; Z87.11 Personal history of peptic ulcer disease
CPT/HCPCS: 80053; 80307; 81003; 84439; 84443; 85025; J2550; J3420